=== PATIENT | female | born 1960 | race Caucasian/White ===

== ENCOUNTER → 2017-12-16 | Outpatient (CLI) | payer BC ==
--- NOTE | 2017-12-18 08:33 | RSPPFT ---
DATE OF PROCEDURE: 12/16/17 COMMENTS: Spirometry with FVC of 2.4 predicted 3.1, FEV1 of 1.5 predicted 2.5, FEV1/FVC ratio at 66% predicted 83%. There is no significant change after acutely inhaled bronchodilator. Mild air trapping is present with RV at 2.3 predicted 2.0. Airways resistance is increased. DLCO is decreased but normal when corrected for alveolar volume. IMPRESSION: On the basis of the above, patient has a mild obstructive lung defect with air trapping and decreased DLCO.
== END ==
LOC: HRSP 08:58
PROVIDERS: ATTEND Internal Medicine
DX: J44.9 Chronic obstructive pulmonary disease, unspecified (principal)
CPT/HCPCS: 94060; 94726; 94729